=== PATIENT | female | born 1955 | race Caucasian/White ===

== ENCOUNTER 2021-06-13 11:04 | Day surgery (SDC) | payer MEDICARE, OTHER ==
[~2021-06-13 11:04] MED LIST: BUPIVACAINE 0.5% VIAL IJ ONE; Lactated Ringers 1,000 ML IV ONE; XYLOCAINE 1% HCL 20 ML MDV ONE
[2021-06-13] MEDS ORDERED: Lactated Ringers 1,000 ML IV SCH (11:30)
[2021-06-13] MEDS ORDERED: CEFAZOLIN 2 GM-D5W BAG** 2 GM/50 ML ML IV SCH (11:30)
[2021-06-13] MEDS ORDERED: Lactated Ringers 1,000 ML IV ONE (11:49)
[2021-06-13] MEDS ORDERED: CEFAZOLIN 2 GM-D5W BAG** 2 GM/50 ML ML IV ONE (11:49)
[2021-06-13] MEDS ORDERED: Zemuron 100 MG/10 ML ONE (11:58)
[2021-06-13] MEDS ORDERED: DIPRIVAN 200 MG/20 ML IV ONE (11:58)
[2021-06-13] MEDS ORDERED: Versed 2 MG/2 ML Injection ONE (11:58)
[2021-06-13 12:19] LABS: ALBUMIN 3.9 g/dL (3.5-5.0); ALKALINE PHOSPHATASE 85 U/L (38-126); ANION GAP 11.1 MEQ/L (5-15); BLOOD UREA NITROGEN 16 mg/dL (7-17); CHLORIDE 106 mmol/L (98-107); Calcium 8.9 mg/dL (8.4-10.2); Carbon Dioxide 26 mmol/L (22-30); Creatinine 1 0.65 mg/dL (0.52-1.04); EST GLOMERULAR FILTRATION RATE > 60.0 ML/MIN; Glucose 90 mg/dL (74-106); Potassium 3.8 mmol/L (3.5-5.1); SGOT/AST 21 U/L (14-36); SGPT/ALT 21 U/L (0-35); SODIUM 140 mmol/L (137-145); Total Protein 6.7 g/dL (6.3-8.2)
[2021-06-13] MEDS ORDERED: Naropin 0.5% 30 ML VIAL ONE (14:01)
[2021-06-13] MEDS ORDERED: Decadron 4 MG INJ ONE (14:01)
[2021-06-13] MEDS ORDERED: BRIDION 200MG/2ML IV ONE (14:08)
--- NOTE | 2021-06-13 14:14 | XRAY ---
Indication: Right Achilles tendon detachment and debridement. Denis deformity resection. Intraoperative fluoroscopy provided for 36 seconds. 9 digital spot images ultimately demonstrates surgical excision of posterior calcaneus spur. Correlate with intraoperative findings/report.
--- NOTE | 2021-06-13 15:28 | OP ---
SURGERY DATE/TIME: 06/13/2021 1225 PREOPERATIVE DIAGNOSIS: Right posterior heel spur with insertional Achilles tendonitis. POSTOPERATIVE DIAGNOSIS: Right posterior heel spur with insertional Achilles tendonitis. 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 SURGEON: Alvin Luis DPM. AUDIO VISUAL DESIGN ENGINEER: None. ANESTHESIA: General. ANTIBIOTIC: 900 mg of clindamycin. HEMOSTASIS: Right thigh tourniquet set to 350 mm of Mercury for 56 minutes. ESTIMATED BLOOD LOSS: Less than 5 ml. MATERIALS: 4.0 Monocryl, 3-0 Nylon, Arlen Biomet Achilles repair 2.9 mm JuggerKnot x2 SpeedBridge, two - 4.5 Quattro Link Anchors x2. INJECTABLES: Postoperative popliteal block. See anesthesia notes for details. PATHOLOGY: None. MICROBIOLOGY: None. COMPLICATIONS: None. INDICATIONS FOR PROCEDURE: Shaniqua is a very pleasant 66-year-old female who presented to my service over a year ago for Achilles tendon pain following an injury. Initially thought to be a partial calcaneal avulsion, this appeared to be more along the lines of calcifications of the Achilles tendon and pain associated with insertion Achilles tendonitis with calcifications within the Achilles tendon. The patient failed multiple courses of physical therapy and immobilization as well as steroids. The patient presented on previous visit having failed for the third time physical therapy. At this time, she is willing to proceed with surgical intervention. All risks, benefits and complications of surgical intervention were discussed with the patient at length which include but are not limited to surgical dehiscence of wound, nonhealing of wound, possible need for surgical intervention in the future, possible Achilles tendon rupture and possible undesirable result of surgical intervention. The patient understands all of this and wishes to proceed with surgical intervention at this time. Plenty of time was allowed for the patient to ask questions which were answered to the patient's apparent satisfaction. It is with this we decided to proceed. DESCRIPTION OF PROCEDURE AND FINDINGS: Following satisfactory preoperative evaluation, the patient was brought into the OR and placed on the OR table in the prone position after administration of general anesthesia. Following sedation a well-padded pneumatic tourniquet was placed on the right thigh and the tourniquet was set to 350 mm of Mercury. The foot is then prepped and draped in typical sterile fashion and lowered onto the surgical field. At this time an Esmarch was utilized to exsanguinate the foot and the tourniquet inflated to 350 mm of Mercury. At this time, attention was directed to the posterior right heel where approximately 6 cm linear incision was made from proximal to distal over the Achilles tendon and its insertion to the calcaneus by a 10 blade. The skin was then reflected via blunt and sharp dissection by a 15 blade to expose the Achilles tendon with paratenon as well as incised and reflected to expose the Achilles tendon. Another incision was made again proximal to distal into the Achilles tendon delving into the mid substance of the Achilles tendon and distally until the distal aspect of the insertion, this incision was 3 cm from the insertion of the Achilles tendon. At this time, an inverted T-incision was utilized to flap the two edges of the Achilles tendon medial and laterally respectively with a good exposure to the posterior aspect of the calcaneus and the Achilles tendon was reflected off of this initial surface. Following this, a sagittal saw with a 31 mm blade was utilized to resect the prominent posterior calcaneal spur as well as the posterior calcification visible on radiographs. The power rasp was then utilized to clean the surface of the posterior surface calcaneal spur and smooth down any rough edges. The area was then flushed with sterile saline. C-arm and fluoroscopy were then used to check the surface of the posterior calcaneus which was noted to be smooth with a corrected curvature and complete resection of the posterior calcaneal spur. Following this, the tendon was then debrided utilizing a 15 blade of any calcifications that were palpated at the distal 3 cm of the Achilles tendon. Following debridement, there was flush performed. Then the 2.9 mm JuggerKnot Temple was introduced into the posterior aspect of the calcaneus proximally, medial and laterally which was brought through the Achilles tendon and re-approximated utilizing the 4.5 Quattro Link PEEK Anchors at the distal aspect of the calcaneus bringing the Achilles tendon down in a SpeedBridge-type fashion. At this time the Achilles tendon was then repaired utilizing 2-0 Vicryl. The surgical site was flushed with copious amounts of sterile saline. At this time, C-arm fluoroscopy was then utilized to assess the anchor position as well as the level of debridement of the posterior calcaneal exostosis. Following this, copious amounts of sterile saline were utilized to flush the surgical site. The paratenon was repaired utilizing 4-0 Monocryl. The superficial subcutaneous layer was coapted utilizing once again 4-0 Monocryl in an interrupted-type fashion and then the incision was then coapted in a horizontal mattress-type fashion utilizing 3-0 Nylon. Following closure, the tourniquet was let down. A total of 56 minutes of total tourniquet time was appreciated. At this time, a dressing consisting of Betadine, Adaptic, 4x4, Kerlix and Webril was applied followed by a well-padded posterior splint secured with 4-inch and 6-inch APRYL. The patient was then reversed from anesthesia and returned to the postoperative anesthesia care unit with vital signs stable and vascular status intact. The patient tolerated the anesthesia and the procedure well. Postoperative orders as indicated in the patient's discharge chart.
[2021-06-13 16:26] VITALS: BP 149/83; PULSE 66; O2SAT 97
--- NOTE | 2021-06-13 16:51 | XRAY ---
36 seconds fluoroscopy time in surgery for right Achilles repair.
== END 2021-06-13 15:45 | disposition home or self-care (01) ==
LOC: SDC 11:04
PROVIDERS: ATTEND Podiatrist Foot & Ankle Surgery
DX: M77.31 Calcaneal spur, right foot (principal); M76.61 Achilles tendinitis, right leg; Z79.899 Other long term (current) drug therapy
CPT/HCPCS: 27654; 28118; 36415; 73610; 76000; 76937; 80053; 93005; C1713; J0690; J1100; J2250; J2704; J2795

== ENCOUNTER 2021-12-15 05:59 | Day surgery (SDC) | payer MEDICARE ==
[2021-12-15] MEDS ORDERED: Lactated Ringers 1,000 ML IV SCH (06:30)
[2021-12-15] MEDS ORDERED: DIPRIVAN 200 MG/20 ML IV ONE (07:24)
[2021-12-15] MEDS ORDERED: Xylocaine-Mpf 2% 5 Ml Vial ONE (07:24)
--- NOTE | 2021-12-15 08:31 | OP ---
SURGERY DATE/TIME: 12/15/2021 0746 PREOPERATIVE DIAGNOSIS: History of colon polyps. POSTOPERATIVE DIAGNOSIS: Normal colon. PROCEDURE: Colonoscopy. SURGEON: Dr. Kwan Rodriguez. ANESTHESIA: MAC. Medications given by anesthesia department. HISTORY: The patient is a 66-year-old white female presenting now for repeat evaluation. She previously had colon polyps removed approximately five years ago. The patient was felt the need to have endoscopic evaluation. She was appraised of the risks of the procedure including the risk of perforation, phlebitis, untoward reaction to medication, bleeding and missed lesions. The patient verbalized her understanding and desired to have the procedure performed. DESCRIPTION OF PROCEDURE: The patient was given the medications by the anesthesia department. She had continuous pulse oximetry, ECG monitoring, intermittent blood pressure monitoring and tidal CO2 monitoring during the examination. She was placed in the left lateral decubitus position. A digital rectal examination was performed and revealed normal anal sphincter tone and no masses. The flexible Olympus pediatric colonoscope was used to intubate the rectum. A view of the colon was developed sequentially to the cecum. Upon insertion and withdrawal no mucosal lesions were encountered. The scope was removed from the patient who tolerated the procedure well and was sent back to OP recovery in good condition. The prep was noted to be fair to good.
[2021-12-15 08:50] VITALS: BP 146/87; PULSE 59; O2SAT 95
== END 2021-12-15 08:55 | disposition home or self-care (01) ==
LOC: SDC 05:59
PROVIDERS: ATTEND Family Medicine
DX: Z09 Encounter for follow-up examination after completed treatment for conditions other than malignant neoplasm (principal); Z86.010 Personal history of colon polyps
CPT/HCPCS: J2704

== ENCOUNTER 2023-09-25 12:40 | Day surgery (SDC) | payer MEDICARE ==
[2023-09-25] MEDS ORDERED: Decadron 4 MG INJ IV ONE (12:41)
[2023-09-25] MEDS ORDERED: Sodium Chloride 0.9(Preservative Free) 10 ML IJ ONE (12:41)
[2023-09-25] MEDS ORDERED: Lactated Ringers 1,000 ML IV ONE (14:08)
[2023-09-25] MEDS ORDERED: DIPRIVAN 200 MG/20 ML IV ONE (14:14)
--- NOTE | 2023-09-25 14:56 | XRAY ---
Indication: Left L3-L5 transforaminal HARSHAD. Intraoperative fluoroscopy provided for 38 seconds. 3 digital spot images submitted for interpretation demonstrates posterior needle tips projecting over the expected left L3 and L4 nerve roots. Small amount of contrast injected for needle tip placement. Correlate with intraoperative findings/report.
--- NOTE | 2023-09-25 15:24 | XRAY ---
38 seconds of fluoroscopy was used in surgery for a left L3-L5 transforaminal HARSHAD.
== END 2023-09-25 14:43 | disposition home or self-care (01) ==
LOC: SDC-PAIN 12:40
PROVIDERS: ATTEND Psychiatry & Neurology Pain Medicine
DX: M54.16 Radiculopathy, lumbar region (principal)
CPT/HCPCS: 64483; 64484; 72100; 77003; J1100; J2704; Q9967

== ENCOUNTER 2023-11-06 12:32 | Day surgery (SDC) | payer MEDICARE ==
[2023-11-06] MEDS ORDERED: XYLOCAINE-MPF 1% 5ML SDV IJ ONE (12:33)
[2023-11-06] MEDS ORDERED: Decadron 4 MG INJ IV ONE (12:33)
[2023-11-06] MEDS ORDERED: DIPRIVAN 200 MG/20 ML IV ONE (14:28)
[2023-11-06] MEDS ORDERED: Lactated Ringers 1,000 ML IV ONE (14:57)
--- NOTE | 2023-11-06 15:25 | XRAY ---
32 seconds of fluoroscopy was used in surgery for a left piriformis injection.
--- NOTE | 2023-11-06 16:34 | XRAY ---
Indication: Left piriformis injection. Intraoperative fluoroscopy provided for 32 seconds. Single digital spot image submitted for interpretation demonstrates posterior needle tip projecting over the left piriformis. Small amount of contrast injected for needle tip placement. Correlate with intraoperative findings/report. Incidental incompletely visualized left hip arthroplasty.
== END 2023-11-06 14:57 | disposition home or self-care (01) ==
LOC: SDC-PAIN 12:32
PROVIDERS: ATTEND Psychiatry & Neurology Pain Medicine
DX: M79.18 Myalgia, other site (principal)
CPT/HCPCS: 20552; 72170; 77002; J1100; J2704; Q9966

== ENCOUNTER 2023-12-11 14:07 | Day surgery (SDC) | payer MEDICARE ==
[2023-12-11] MEDS ORDERED: Depo-Medrol 40 MG/ML IM ONE (14:08)
[2023-12-11] MEDS ORDERED: BUPIVACAINE 0.5% VIAL IJ ONE (14:08)
[2023-12-11] MEDS ORDERED: DIPRIVAN 200 MG/20 ML IV ONE ×2 (15:39→15:51)
--- NOTE | 2023-12-11 16:34 | XRAY ---
Indication: Left ischial bursa injection. Intraoperative fluoroscopy provided for 15 seconds. Single digital spot image submitted for interpretation demonstrates posterior needle tip adjacent to left inferior ischial tuberosity inferiorly. Small amount of contrast injected for needle tip placement. Correlate with intraoperative findings/report.
--- NOTE | 2023-12-11 16:52 | XRAY ---
15 seconds of fluoroscopy was used in surgery for a left ischial bursa injection.
[2023-12-11] MEDS ORDERED: Lactated Ringers 1,000 ML IV ONE (17:01)
== END 2023-12-11 16:05 | disposition home or self-care (01) ==
LOC: SDC-PAIN 14:07
PROVIDERS: ATTEND Psychiatry & Neurology Pain Medicine
DX: M70.62 Trochanteric bursitis, left hip (principal)
CPT/HCPCS: 20610; 72170; 77002; J2704; Q9966

== ENCOUNTER 2024-09-09 13:59 | Day surgery (SDC) | payer MEDICARE ==
[2024-09-09] MEDS ORDERED: Depo-Medrol 40 MG/ML IM ONE (14:00)
[2024-09-09] MEDS ORDERED: BUPIVACAINE 0.5% VIAL IJ ONE (14:00)
[2024-09-09] MEDS ORDERED: propofoL IV ONE (17:08)
[2024-09-09] MEDS ORDERED: Lactated Ringers 1,000 ML IV ONE (17:50)
--- NOTE | 2024-09-09 20:17 | XRAY ---
Indication: Left greater trochanter bursa and left ischial bursa injection. Intraoperative fluoroscopy provided for 20 seconds. 3 digital spot images obtained prone submitted for interpretation demonstrates needle tip projecting lateral to right femur neck. Second needle tip projects over left ischial tuberosity. Small amount of contrast injected for needle tip placement. Correlate with intraoperative findings/report.
--- NOTE | 2024-09-09 21:51 | XRAY ---
20 seconds of fluoroscopy were used in surgery for a left greater trochanteric bursa injection and a left ischial bursa injection.
== END 2024-09-09 17:46 | disposition home or self-care (01) ==
LOC: SDC-PAIN 13:59
PROVIDERS: ATTEND Psychiatry & Neurology Pain Medicine
DX: M16.12 Unilateral primary osteoarthritis, left hip (principal); M70.62 Trochanteric bursitis, left hip
CPT/HCPCS: 20610; 73501; 77002; J2704; Q9966